=== PATIENT | female | born 1980 | race Caucasian/White ===

== ENCOUNTER 2016-11-08 23:38 | Emergency (ER) | payer SELFPAY ==
[~2016-11-08] VITALS: Ht 172.7 cm; Wt 93.7 kg
[~2016-11-08 23:38] MED LIST: AZITHROMYCIN250 MG PO; CEFDINIR300 MG PO; CIPROFLOXACIN500 M1 PO; CLINDAMYCIN HC300 MG PO; CYCLOBENZAPRINE10 MG PO; DIFLUCAN150 MG PO; EFFEXOR XR150 MG PO; HYCODAN SYRUP480 ML PO; HYDRODIURIL,ORE25 MG PO; KEFLEX500 MG PO; MELOXICAM15 MG PO; MELOXICAM7.5 MG PO; MOBIC15 MG PO; MOTRIN800 MG PO; MOUTH SORE15 ML MM; MUCINEX D ER T1 EACH PO; NAPROSYN500 MG PO; NOHOMEMEDS; NORCO 5/3251 TABLET PO; PAROXETINE HCL20 MG PO; PHENAZOPYRIDIN200 MG PO; PRAVACHOL40 MG PO; PREDNISONE50 MG PO; PRINIVIL20 MG PO; VALTREX1000 MG PO
[2016-11-09 00:28] LABS: HEMATOCRIT 39.9 % (36.0-46.0); MCH 30.5 PG (29.0-34.0); MCHC 35.6 G/DL (30.0-36.0); MCV 85.6 FL (83-99); MEAN PLAT.VOLUME 9.6 uM^3 (9.5-12.4); PLATELET COUNT 339 K/uL (156-360); RBC DIS.WIDTH-CV 12.1 % (11.8-14.6); RBC DIS.WIDTH-SD 37.6 % (39-53); RED BLOOD COUNT 4.66 M/uL (3.80-5.20); WHITE BLOOD COUNT 11.2 K/uL (4.1-10.2)
[2016-11-09 00:45] LABS: CHLORIDE 107 mEq/L (99-109); GLUCOSE 166 mg/dL (70-99); POTASSIUM 3.7 mEq/L (3.7-5.4); SODIUM 139 mEq/L (136-147)
[2016-11-09 00:46] LABS: ANION GAP 13 MEQ/L (2-14)
[2016-11-09 00:49] LABS: GFR ESTIMATE (CALCULATED) > 59 mL/min/
[2016-11-09 00:50] LABS: TROP-I INTERPRETATION NEGATIVE; TROPONIN-I < 0.01 ng/mL (0.0-0.30); UREA NITROGEN (BUN) 13 mg/dL (9-23)
[2016-11-09 01:13] LABS: ADD MIUA? YES; BILIRUBIN NEGATIVE; BLOOD NEGATIVE; COLOR STRAW ((YELLOW)); GLUCOSE (STRIP) 50; KETONES NEGATIVE; LEUKOCYTES TRACE; NITRITE NEGATIVE; PROTEIN (STRIP) NEGATIVE; SPECIFIC GRAVITY 1.011 (1.000-1.030); UROBILINOGEN 0.2 MG/DL (0.2-1.0)
[2016-11-09 01:27] LABS: BACTERIA NONE SEEN /HPF; EPITHELIAL CELLS RARE /HPF; MUCUS NONE SEEN /LPF; RED BLOOD CELLS 0-5 /HPF (0-5); UCUL ADDED? YES
[2016-11-09 03:14] LABS: TROP-I INTERPRETATION NEGATIVE; TROPONIN-I < 0.01 ng/mL (0.0-0.30)
[2016-11-09] MEDS ORDERED: ZESTRIL20 MG PO (04:27)
[2016-11-09 05:03] VITALS: BP 132/93
[2016-11-10 13:16] LABS: CHLAMYDIA TRACHOMATIS NEGATIVE; NEISSERIA GONORRHOEAE NEGATIVE
== END 2016-11-09 05:06 | disposition home or self-care (01) ==
LOC: EME 23:38
PROVIDERS: Emergency Medicine
DX: R07.9 Chest pain, unspecified (principal); I10 Essential (primary) hypertension; T46.4X6A Underdosing of angiotensin-converting-enzyme inhibitors, initial encounter; Z91.128 Patient's intentional underdosing of medication regimen for other reason; Z20.2 Contact with and (suspected) exposure to infections with a predominantly sexual mode of transmission
CPT/HCPCS: 71020; 80048; 81003; 83880; 84484; 85027; 87086; 87491; 87591; 93005; 99281; 99284

== ENCOUNTER 2017-04-25 22:23 | Emergency (ER) | payer OTHER ==
[~2017-04-25] VITALS: Ht 172.7 cm; Wt 91.1 kg
[~2017-04-25 22:23] MED LIST changes: +ZESTRIL20 MG PO
[2017-04-26 01:10] LABS: HEMATOCRIT 37.1 % (36.0-46.0); HEMOGLOBIN 13.3 G/DL (11.9-15.5); MCH 30.9 PG (29.0-34.0); MCHC 35.8 G/DL (30.0-36.0); MCV 86.3 FL (83-99); PLATELET COUNT 323 K/uL (156-360); RBC DIS.WIDTH-CV 11.9 % (11.8-14.6); RBC DIS.WIDTH-SD 37.6 % (39-53); WHITE BLOOD COUNT 7.5 K/uL (4.1-10.2)
[2017-04-26 01:18] LABS: CHLORIDE 103 mEq/L (99-109); POTASSIUM 4.2 mEq/L (3.7-5.4); SODIUM 139 mEq/L (136-147)
[2017-04-26 01:20] LABS: GLUCOSE 143 mg/dL (70-99)
[2017-04-26 01:24] LABS: CREATININE 0.8 mg/dL (0.6-1.3); GFR ESTIMATE (CALCULATED) > 59 mL/min/
[2017-04-26 01:25] LABS: UREA NITROGEN (BUN) 10 mg/dL (9-23)
[2017-04-26] MEDS ORDERED: ZITHROMAX250 MG PO (02:21)
[2017-04-26] MEDS ORDERED: TESSALON PERLE100 MG PO (02:21)
[2017-04-26] MEDS ORDERED: VENTOLIN HFA18 GM IH (02:21)
[2017-04-26] MEDS ORDERED: PREDNISONE20 MG PO (02:21)
[2017-04-26] MEDS ORDERED: PRINIVIL20 MG PO (02:26)
[2017-04-26 03:10] VITALS: BP 165/103
== END 2017-04-26 03:11 | disposition home or self-care (01) ==
LOC: EXP 22:23 → EME 22:23 → EXP 04-26 03:11
PROVIDERS: Physician Assistant
DX: J18.0 Bronchopneumonia, unspecified organism (principal); I10 Essential (primary) hypertension; F32.9 Major depressive disorder, single episode, unspecified; Z91.14 Patient's other noncompliance with medication regimen; Z98.51 Tubal ligation status
CPT/HCPCS: 71046; 80048; 85027; 93005; 94664; 99281; 99284; J7512